=== PATIENT | male | born 1945 | race Caucasian/White ===

== ENCOUNTER 2018-07-31 11:14 | Outpatient (CLI) | payer MEDICARE, SELFPAY ==
[2018-07-31 12:26] LABS: CREATININE 0.95 mg/dL (0.70-1.30); Glucose 119 mg/dL (70-100)
== END 2018-07-31 11:34 ==
PROVIDERS: PCP General Practice; Visit Provider General Practice
DX: I10 Essential (primary) hypertension (principal); Z13.1 Encounter for screening for diabetes mellitus
CPT/HCPCS: 36415; 82947; 82565; 84132

== ENCOUNTER 2018-12-29 10:58 | Emergency (ER) | payer MEDICARE, SELFPAY ==
[2018-12-29 11:02] VITALS: BP 156/95; PULSE 112; RESP 28; TEMP 36.9; O2SAT 97
[2018-12-29 11:10] VITALS: PULSE 105
[2018-12-29 11:21] VITALS: PULSE 105; RESP 2; RESP 28; RESP 7; O2SAT 97
[2018-12-29] MEDS: Albuterol/Ipratropium 3 ML UPD VIAL (11:21)
--- NOTE | 2018-12-29 11:22 | DI.RAD_ITS ---
EXAM: XR CHEST 2V PA LATERAL INDICATION: cough. COMPARISON: CHEST 2 VIEWS PA,LAT from 05/14/2016 TECHNIQUE: 2D digital imaging was performed. FINDINGS: The heart size normal. The lungs are again be hyperinflated. There is mild pulmonary scarring gre atest at the apices. No infiltrate, effusion or pulmonary edema is seen. There are old right upper rib fractures. There are no thoracic compression fractures. No pneumothorax or acute rib fracture i s seen. IMPRESSION: Emphysematous changes. No acute abnormality.
--- NOTE | 2018-12-29 11:23 | ED.GENADUL_ITS ---
Discharge Plan Disposition Patient Disposition: HOME Discharge Details Chief Complaint: RespSymp Clinical Impression: COPD with acute exacerbation Primary Care Provider: Bertin Degroot ED Provider: Elias Ross Home Meds and New Rx's Prescriptions: New doxycycline hyclate 100 mg tablet 100 mg PO BID Qty: 13 RF: 0 prednisone 20 mg tablet 40 mg PO DAILY Qty: 8 RF: 0 Continued lisinopril 20 MG tablet 40 mg PO DAILY RF: 0 fluticasone propion-salmeterol [Advair Diskus] 1 EACH blister with device 1 ea Inhalation BID RF: 0 albuterol sulfate [ProAir HFA] 1 PUFF HFA aerosol inhaler 2 puff Q6H WHILE AWAKE RF: 0 Atrovent HFA 1 PUFF HFA aerosol inhaler 2 puff Q4H WHILE AWAKE RF: 0 Discharge Instructions Instructions: COPD (Chronic Obstructive Pulmonary Disease) (ED) Additional Instructions: Please take prednisone and antibiotic as prescribed. Use albuterol (ventolin) inhaler with spacer as prescribed 2 puffs every 4 hours as needed for shortness of breath and wheeze. Please contact your primary care physician to arrange follow-up. Return to the ER for any worsening or new concerning symptoms. Referrals: Bertin Degroot MD [Primary Care Provider] - Discharge Data Discharge Date/Time-TO BE ENTERED AT DEPARTURE: 12/29/18 13:10 Medical Decision Making 11:29 --73-year-old male former smoker with history of COPD, here with acute shortness of breath, cough, mild respiratory distress. Suspect bronchitis versus pneumonia with acute COPD exacerbation. Plan to treat with prednisone 60 mg and DuoNeb x3 and will reassess. Chest x-ray to assess for pneumonia. I have consulted respiratory therapy to assist in the care of this patient. 13:09 --chest x-ray was reviewed and interpreted by radiology: Emphysematous changes. No acute abnormality. Patient reassessed and breathing much easier. Patient has minimal wheeze but significantly improved. Patient saturating well on room air. All results were discussed with the patient. Plan will be for him to continue prednisone and doxycycline and use albuterol inhaler. I will provide spacer. He was encouraged to follow-up with his primary care physician and to call today to arrange timely follow-up. Usual and customary discharge instructions were provided. HPI General Mode of arrival: ambulatory . Date/Time Provider Initiated Documentation: 12/29/18 11:22 . Limitations to Documentation: no limitations . Information obtained by: patient . HPI Narrative: 73-year-old male with history of COPD, former smoker, here with shortness of breath. Shortness of breath is moderate. He notes he has had progressive shortness of breath over the past few days. Last night was more severe. He states he has had an upper respiratory infection for the past week or so and things seem to be more focal in his chest and now with chest congestion. He denies chest pain. No swelling. Related Data Home Medications Medication Instructions Recorded Confirmed Atrovent HFA 2 puff Q4H WHILE AWAKE 07/05/12 12/29/18 albuterol sulfate [ProAir HFA] 2 puff Q6H WHILE AWAKE 07/05/12 12/29/18 fluticasone propion-salmeterol 1 ea INHALATION BID 07/05/12 07/05/12 [Advair Diskus] lisinopril 40 mg PO DAILY 07/05/12 12/29/18 doxycycline hyclate 100 mg PO BID #13 tab 12/29/18 prednisone 40 mg PO DAILY #8 tab 12/29/18 Previous Rx's Medication Instructions Recorded doxycycline hyclate 100 mg PO BID #13 tab 12/29/18 prednisone 40 mg PO DAILY #8 tab 12/29/18 Allergies Allergy/AdvReac Type Severity Reaction Status Date / Time No Known Allergies Allergy Unverified 12/29/18 11:19 General Stated Complaint: RespSymp RAGHAV: 3 Review of Systems All systems reviewed & are unremarkable except as noted in HPI and below Constitutional Constitutional: Denies fever(s) Cardiovascular Cardiovascular: Reports dyspnea Respiratory Respiratory: Reports cough and Reports dyspnea PFSH Social History Smoking/Tobacco Use Status: Former Tobacco Use Alcohol Intake: never Drug use: Never Do you feel safe at home: No Do you feel safe in your relationship?: No Exam Const General: cooperative and no acute distress HENMT Mouth: moist mucous membranes Eyes Conjunctivae: normal conjunctivae Sclera: normal sclerae Neck Neck: trachea midline and supple Resp Effort & Inspection: not able to speak in complete sentences and respiratory distress Auscultation: diminished lung sounds bilaterally and wheezes expiratory wheezes Cardio Jugular venous pressure: no JVD Rate: tachycardic Rhythm: regular rhythm GI Palpation: soft, not firm, no guarding, no masses, not rigid and nontender Skin General skin exam: no rashes or lesions noted Neuro General: alert, awake and tone normal Extrem General: no calf tenderness and no edema Psych Appearance: grossly normal Mental Status: mental status grossly normal Course Vital Signs Vital signs: Vital Signs Temperature 36.9 C 12/29/18 11:02 Pulse 112 H 12/29/18 11:02 Respiratory Rate 28 H 12/29/18 11:02 Blood Pressure 156/95 H 12/29/18 11:02 Pulse Oximetry 97 12/29/18 11:02 Temperature 36.9 C 12/29/18 11:02 Pulse 105 H 12/29/18 11:21 Respiratory Rate 28 H 12/29/18 11:21 Respiratory Effort Labored 12/29/18 11:02 Blood Pressure 156/95 H 12/29/18 11:02 Pulse Oximetry 97 12/29/18 11:21 Oxygen Delivery Method Room Air 12/29/18 11:21 Oxygen Flow Rate 0 12/29/18 11:21 Pain Level 0 12/29/18 11:02
[2018-12-29] MEDS: Albuterol/Ipratropium 3 ML UPD VIAL UPD ×2 (11:27)
[2018-12-29] MEDS: predniSONE 20 MG TAB 60 MG PO (11:28)
[2018-12-29 12:03] VITALS: BP 121/82; PULSE 96; O2SAT 95
[2018-12-29 13:11] VITALS: BP 136/79; PULSE 110; RESP 24; TEMP 36.9; O2SAT 95
[2018-12-29] MEDS: Doxycycline Hyclate 100 MG CAP PO (13:16)
[2018-12-29] MEDS: Inhaler, Assist Device 1 EACH MC (13:17)
== END 2018-12-29 13:10 | disposition home or self-care (01) ==
PROVIDERS: Emergency Provider Student in an Organized Health Care Education/Training Program; PCP General Practice
DX: J44.1 Chronic obstructive pulmonary disease with (acute) exacerbation (principal); Z87.891 Personal history of nicotine dependence
CPT/HCPCS: 36415; 94640; 99284; 71046; J7512; J7620

== ENCOUNTER → 2019-11-30 13:53 | Outpatient (BNVA) | payer MEDICARE, SELFPAY | PROVIDERS: PCP Family Medicine; Referring Provider Family Medicine; Visit Provider Physical Therapy Assistant | DX: R19.5 Other fecal abnormalities (principal); J44.9 Chronic obstructive pulmonary disease, unspecified; I10 Essential (primary) hypertension; Z87.891 Personal history of nicotine dependence | CPT/HCPCS: 99213 ==

== ENCOUNTER 2019-12-24 02:19 | Outpatient (CLI) | payer MEDICARE, SELFPAY ==
--- NOTE | 2019-12-24 06:30 | DI.RAD_ITS ---
EXAM: RF BARIUM ENEMA CLINICAL HISTORY: Unable to tolerate Colonoscopy,POSITIVE FECAL IMMUNOCHEMICAL TEAR,R19.5 COMPARISON: No exams were available for comparison TECHNIQUE: 2D and realtime digital imaging was performed. CONTRAST MATERIAL: Barium contrast was administered. FINDINGS: The colon demonstrates no structural abnormalities including structure,dilation, adhesion, or mass. T he terminal ileum is identified and appears unremarkable. There are diverticula scattered throughout the colon. IMPRESSION: Colonic diverticulosis. No evidence of obstruction.
== END 2019-12-24 02:39 ==
PROVIDERS: PCP Family Medicine; Visit Provider Physical Therapy Assistant
DX: K57.30 Diverticulosis of large intestine without perforation or abscess without bleeding (principal)
CPT/HCPCS: 74270

== ENCOUNTER 2020-07-07 02:25 | Outpatient (CLI) | payer MEDICARE, SELFPAY ==
--- NOTE | 2020-07-07 14:09 | DI.US_ITS ---
APPROVED REPORT EXAM: Comprehensive 2D, Doppler, and color-flow Echocardiogram Indications: New onset LE edema, COPD Other Information Study Quality: Fair. Technically limited study due to inability to position patient, body habitus, rona ng disease. Conclusion Left Ventricle : The left ventricle is normal size. The left ventricular systolic function is normal. The left ventricular ejection fraction is within the normal range. There is normal left ventricular wall thickness. There is normal LV segmental wall motion. The left ventricular diastolic function is normal. LVEF is 56%. Right Ventricle : Right ventricle is grossly normal in size. Right ventricular systolic function is g rossly normal. Tricuspid Valve : The tricuspid valve is normal in structure. Trace tricuspid regurgitation. Unable t o assess PA pressure. There is no tricuspid valve stenosis. Great Vessels : The aortic root is normal in size. Ascending aorta is not well visualized. Aortic arc h is not well visualized. IVC is normal in size and collapses >50% with inspiration. Please see remainder of study for further details. Wall motion Left Ventricle The left ventricle is normal size. The left ventricular systolic function is normal. The left ventric ular ejection fraction is within the normal range. There is normal left ventricular wall thickness. T here is normal LV segmental wall motion. The left ventricular diastolic function is normal. There is no ventricular septal defect visualized. LVEF is 56%. Right Ventricle Right ventricle is grossly normal in size. Right ventricular systolic function is grossly normal. Atria The left atrium size is normal. The right atrium size is normal. The interatrial septum is intact wit h no evidence for an atrial septal defect. Aortic Valve The aortic valve is not well visualized. Number of aortic valve leaflets could not be assessed. There is no aortic valvular stenosis. No aortic regurgitation is present. Mitral Valve The mitral valve is normal in structure. No evidence of mitral valve stenosis. Trace mitral regurgita tion. Tricuspid Valve The tricuspid valve is normal in structure. There is no tricuspid valve stenosis. Trace tricuspid reg urgitation. Unable to assess PA pressure. Pulmonic Valve Pulmonic valve is not well visualized. There is no pulmonic valvular stenosis. There is no pulmonic v alvular regurgitation. Great Vessels The aortic root is normal in size. Ascending aorta is not well visualized. Aortic arch is not well vi sualized. IVC is normal in size and collapses >50% with inspiration. Pericardium There is no pericardial effusion. 2D Dimensions IVSD d PLAX 0.93 cm M: 0.6-1.2 LV Vol A2C d MOD 56.6 mL LVPW d PLAX 0.89 cm M: 0.6 - 1.2 LV Vol A4C d MOD 69.5 mL LVID d PLAX 4.02 cm M: 4.2 - 5.8 LA vol/ BSA A4C s A-L 16.4 mL/m2 LVDs 2.80 cm M: 2.5 - 4.0 LA Area A4C s MOD 12.04 cm2 Ao Root d 3.45 cm M: 3.1 - 3.7 LV EF A4C MOD 55.7 % RA Area A4C 11.12 cm2 LV EF A2C MOD 57.5 % RA Vol/ BSA A4C s A-L 15.5 mL/m2 LV EF Biplane MOD 55.3 % LV EF Teichholz 57.8 % SV 35.23 mL LVEF (Benitez's) 55.29 % M: 52 - 72 SV Index 19.90 mL/m2 LV Volume 49.86 mL M: 62 - 150 LV Volume Index 28.16 mL/m2 M: 34 - 74 LV Vol Biplane MOD 63.7 mL FS 30.05 % M-Mode TAPSE 1.61 cm (M/F) >1.7 LV Diastology MV E' medial 0.073 (>0.07 m/s) E/A Ratio 0.8 LV E/e MED 7.25 (<14) MV E Vmax 0.53 (0.4-1.3 m/s) MV E' lateral 0.084 (>0.1 m/s) MV A Vmax 0.70 (0.4-1.3 m/s) LV E/e LAT 6.30 (<14) MV E/A Ratio 0.75 MV E/E' medial 7.27 MV E/E' lateral 6.34 Aortic Valve LVOT Area 4.03 cm2 AoV Area Vmax 3.78 cm2 LVOT Vmax 1.03 m/s AoV Area/ BSA (Vmax) 2.13 cm2/m2 LVOT Mean Waylon. 0.71 m/s PANKAJ Mean Waylon. 3.76 cm2 LVOT Peak Grad 4.2 mmHg PANKAJ Mean [place]lon. Index 2.13 cm2/m2 LVOT Mean Grad 2.3 mmHg LVOT VTI 0.156 m LVOT Diam s 2.25 cm AoV Vmax 1.10 m/s Velocity Ratio 0.93 AoV Mean Waylon. 0.76 m/s AoV Peak Grad 4.8 mmHg LVOT SV 62.74 mL AoV Mean Grad 2.7 mmHg AoV VTI 0.201 m AoV Area VTI 3.12 cm2 AoV Area/ BSA (VTI) 1.76 cm/m2 Mitral Valve MV DT 373 (160-240 msec) MV PHT 108 msec MV Area PHT 2.03 cm2 MV VTI 0.200 m MV VTI Annulus 0.208 m MV Area VTI 3.28 (4.0-6.0 cm2) Pulmonary Valve PV Vmax 0.90 (0.5-1.5 m/s) RVOT Peak Gr. 2.19 mmHg PV Peak Grad 3.2 mmHg RVOT Mean Gr. 1.15 mmHg PV Mean Grad 2.2 mmHg RVOT VTI 0.139 m PV VTI 0.164 m RVOT Vmax 0.74 m/s
== END 2020-07-07 02:45 ==
PROVIDERS: PCP Family Medicine; Visit Provider Family Medicine
DX: R60.0 Localized edema (principal); J44.9 Chronic obstructive pulmonary disease, unspecified; R93.9 Diagnostic imaging inconclusive due to excess body fat of patient
CPT/HCPCS: 93306

== ENCOUNTER 2020-09-19 03:34 | Outpatient (CLI) | payer MEDICARE, SELFPAY ==
[2020-09-19 16:40] LABS: ALT 25 U/L (16-63); AST 19 U/L (15-37); Albumin 3.9 g/dL (3.4-5.0); Alkaline Phosphatase 68 U/L (46-116); Anion Gap 9.9 mmol/L (3-11); BUN 11 mg/dL (7-18); Bilirubin, Total 0.4 mg/dL (0.2-1.0); CO2 27.1 mmol/L (21.0-32.0); Calcium 9.5 mg/dL (8.5-10.1); Calculated LDL 90 mg/dL (<100); Chloride 104 mmol/L (98-107); Cholesterol 165 mg/dL (<200); Glucose 107 mg/dL (74-106); HDL Cholesterol 69 mg/dL (40-60); Potassium 4.8 mmol/L (3.5-5.1); Sodium 141 mmol/L (136-145); Total Protein 7.1 g/dL (6.4-8.2); Triglyceride 32 mg/dL (<150)
== END 2020-09-19 03:35 | disposition home or self-care (01) ==
LOC: LBO 03:34
PROVIDERS: PCP Family Medicine; Visit Provider Family Medicine
DX: I10 Essential (primary) hypertension (principal)
CPT/HCPCS: 36415; 80053; 80061

== ENCOUNTER 2020-11-19 02:11 | Outpatient (CLI) | payer MEDICARE, SELFPAY ==
--- NOTE | 2020-11-19 08:30 | DI.CTLCSR_ITS ---
Exam(s) CT CHEST LUNG CANCER SCREEN EXAM: CT CHEST LUNG CANCER SCREEN CLINICAL HISTORY: Screening for lung cancer,former smoker, z87.891. TECHNIQUE: Imaging Protocol: Low Dose Technique CONTRAST MATERIAL: None COMPARISON: CR XR CHEST 2V PA LATERAL from 12/29/2018 FINDINGS: CHEST: LUNGS: Bilateral hyperinflation and emphysematous changes. Small calcified granulomas noted in both lungs. Small infiltrates in the posterior basal segments of both lower lobes.. There are no pleural effusions. MEDIASTINUM: There is no obvious hilar nor mediastinal adenopathy. CARDIAC: Heart size is normal. There is no pericardial effusion.Caliber of the thoracic aorta is wit hin normal limits. OTHER: OSSEOUS: No significant osseous lesions.Healed right-sided rib fractures noted. IMPRESSION: 1. Benign calcified granulomas noted in both lung gilliam. 2. Small nodular infiltrate in the medial aspect of the posterior basal segment right lower lobe, randal suring 10 x 9 millimeters. Also some mild infiltrate in the posterior basal segment of the left lowe r lobe. No pleural effusions. No intrathoracic adenopathy. 3. Lung RADS Cat 3 - Probably Benign: Probably benign finding(s) - short term follow-up suggested; in clude nodules with a low likelihood of becoming a clinically active cancer. CT scan in 6 months. Sign rib Lung-RADS 1.0 CATEGORIES: Category 0 - Prior chest CT exam(s) being located for comparison. Category 1 - Annual screening in 12 months. No nodules or definitely benign nodules. Category 2 - Annual screening in 12 months. Benign appearance. Nodules with low likelihood of becomin g active cancer. Category 3 - 6-month follow-up. Probably benign. Short-term follow-up suggested. Nodules with low lik elihood of becoming active cancer. Category 4A - 3-month follow-up and CT/PET if >8 mm in size. Suspicious finding. Findings which requi re additional testing. Category 4B - Findings which require additional testing and tissue sampling. Modifier S- Potentially clinically significant findings (non lung cancer) RADIATION DOSE DELIVERED: 83.46mGy.cm Total DLP CTDIvol DATA REPOSITORY: All CT scans at this facility are submitted to the National Radiology Data Registry (NRDR) Dose Index Registry (DIR) with the [employer] (ACR). RADIATION OPTIMIZATION: All CT scans at this facility use at least one of these dose optimization te chniques: automated exposure control; mA and/or kV adjustment per patient size (includes targeted exa ms where dose is matched to clinical indication); or iterative reconstruction.
--- NOTE | 2020-11-19 08:30 | DI.US_ITS ---
Exam(s) US AAA SCREENING EXAM: US AAA SCREENING CLINICAL HISTORY: screening for aaa,z13.6 COMPARISON: None FINDINGS: Abdominal aorta atherosclerotic but not dilated. Maximum external diameter is 2.7 cm which is proxim ally. The aorta tapers distally to diameter of 2 cm. The visualized common iliac arteries are not d ilated. IMPRESSION: No evidence of abdominal aortic aneurysm. DATA REPOSITORY:
== END 2020-11-19 02:31 ==
PROVIDERS: PCP Family Medicine; Visit Provider Family Medicine
DX: Z87.891 Personal history of nicotine dependence (principal); Z13.6 Encounter for screening for cardiovascular disorders; Z12.2 Encounter for screening for malignant neoplasm of respiratory organs; J84.10 Pulmonary fibrosis, unspecified; R91.8 Other nonspecific abnormal finding of lung field
CPT/HCPCS: 71271; 76706

== ENCOUNTER 2021-06-15 03:47 | Outpatient (CLI) | payer MEDICARE, SELFPAY ==
--- NOTE | 2021-06-15 08:30 | DI.CT_ITS ---
Exam(s) CT CHEST WO EXAM: CT CHEST WO CLINICAL HISTORY: Nodules seen on lung cancer screenING, 6 month f/u,R91.8. TECHNIQUE: Imaging protocol: Axial computed tomography images were obtained and coronal and sagittal reformatted images were created and reviewed. COMPARISON: CT CT CHEST LUNG CANCER SCREEN from 11/19/2020 FINDINGS: Tracheobronchial tree: Patent where visualized. Pulmonary parenchyma: Similar reticular nodular infiltrates are seen in the lung bases. These are un changed. No focal consolidating infiltrates are present. Centrilobular emphysematous changes are pr esent in the lungs. There are calcified granuloma in the lung. Mediastinum and Mar[place]: Stable mildly prominent lymph nodes are seen in the mediastinum. The esophagus is unremarkable. Thyroid gland: Unremarkable. Pleura: No effusion or pneumothorax. Heart: The heart is not dilated. Coronary artery calcifications are present. No pericardial effusion . Aorta: Thoracic aorta non-dilated. Atherosclerosis. Upper abdomen: Unremarkable. Lymph nodes: Within normal limits. Soft tissues: Unremarkable. Bones:Within normal limits for the patient's age. IMPRESSION: 1. Stable appearance of the lungs. The reticular nodular infiltrates may be chronic in nature. No n ew infiltrates are present. 2. Centrilobular emphysematous changes in the lungs. 3. A follow-up examination in 6-12 months is recommended for re-evaluation. RADIATION DOSE DELIVERED: 472.65mGy.cm Total DLP 472.65mGy.cm Total DLP DATA REPOSITORY: All CT scans at this facility are submitted to the National Radiology Data Registry (NRDR) Dose Index Registry (DIR) with the [employer] (ACR). RADIATION OPTIMIZATION: All CT scans at this facility use at least one of these dose optimization te chniques: automated exposure control; mA and/or kV adjustment per patient size (includes targeted exa ms where dose is matched to clinical indication); or iterative reconstruction.
== END 2021-06-15 04:07 ==
PROVIDERS: PCP Family Medicine; Visit Provider Family Medicine
DX: R91.8 Other nonspecific abnormal finding of lung field (principal); J43.2 Centrilobular emphysema
CPT/HCPCS: 71250

== ENCOUNTER 2022-08-04 02:52 | Outpatient (CLI) | payer MEDICARE, SELFPAY ==
--- NOTE | 2022-08-04 08:15 | DI.CTLCSR_ITS ---
Exam(s) CT CHEST LUNG CANCER SCREEN EXAM: CT CHEST LUNG CANCER SCREEN CLINICAL HISTORY: Screening for lung cancer,former smoker, z87.891. TECHNIQUE: Imaging Protocol: Low Dose Technique CONTRAST MATERIAL: None COMPARISON: CT CT CHEST WO from 06/15/2021 FINDINGS: CHEST: LUNGS: There are COPD emphysematous changes in both lung gilliam. There is mild bronchiectasis noted in both lower lobes-.. There is a 1 cm nodular infiltrate in the posterior basal segment of the righ t lower lobe, slightly increased in size from previous study. 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 MEDIASTINUM: There is no obvious hilar nor mediastinal adenopathy. CARDIAC: Heart size is normal. There is no pericardial effusion.Caliber of the thoracic aorta is wit hin normal limits. OTHER: No adrenal masses evident. OSSEOUS: No significant osseous lesions.No fractures.. IMPRESSION: 1. Increased infiltrates in lung bases so seated with element of bronchiectasis. No obvious pleural effusions. Recommend follow-up CT scan in 3 months 2. No obvious intrathoracic adenopathy. 3. Lung RADS Cat 3 - Probably Benign: Probably benign finding(s) - short term follow-up suggested; in clude nodules with a low likelihood of becoming a clinically active cancer. Lung-RADS 1.0 CATEGORIES: Category 0 - Prior chest CT exam(s) being located for comparison. Category 1 - Annual screening in 12 months. No nodules or definitely benign nodules. Category 2 - Annual screening in 12 months. Benign appearance. Nodules with low likelihood of becomin g active cancer. Category 3 - 6-month follow-up. Probably benign. Short-term follow-up suggested. Nodules with low lik elihood of becoming active cancer. Category 4A - 3-month follow-up and CT/PET if >8 mm in size. Suspicious finding. Findings which requi re additional testing. Category 4B - Findings which require additional testing and tissue sampling. Category 4X - Category 3 or 4 nodules with additional features or imaging findings that increases the suspicion of malignancy. Modifier S- Potentially clinically significant findings (non lung cancer) RADIATION DOSE DELIVERED: 79.82mGy.cm Total DLP DATA REPOSITORY: All CT scans at this facility are submitted to the National Radiology Data Registry (NRDR) Dose Index Registry (DIR) with the [employer] (ACR). RADIATION OPTIMIZATION: All CT scans at this facility use at least one of these dose optimization te chniques: automated exposure control; mA and/or kV adjustment per patient size (includes targeted exa ms where dose is matched to clinical indication); or iterative reconstruction.
== END 2022-08-04 03:12 ==
LOC: DI 02:52
PROVIDERS: PCP Family Medicine; Visit Provider Family Medicine
DX: Z87.891 Personal history of nicotine dependence (principal); Z12.2 Encounter for screening for malignant neoplasm of respiratory organs; R91.8 Other nonspecific abnormal finding of lung field
CPT/HCPCS: 71271

== ENCOUNTER 2022-09-29 02:41 | Outpatient (CLI) | payer MEDICARE, SELFPAY ==
[2022-09-29 15:04] LABS: Anion Gap 8.5 mmol/L (3-11); BUN 13 mg/dL (7-18); CO2 27.5 mmol/L (21.0-32.0); CREATININE 1.1 mg/dL (0.70-1.30); Calcium 9.8 mg/dL (8.5-10.1); Chloride 100 mmol/L (98-107); Estimated GFR 69.57 (mL/min/1.73m2); Glucose 112 mg/dL (74-106); Potassium 4.3 mmol/L (3.5-5.1); Sodium 136 mmol/L (136-145)
== END 2022-09-29 02:42 | disposition home or self-care (01) ==
PROVIDERS: PCP Family Medicine; Referring Provider Family Medicine; Visit Provider Family Medicine
DX: Z87.891 Personal history of nicotine dependence (principal)
CPT/HCPCS: 36415; 80048